=== PATIENT | male | born 1970 | race Caucasian/White ===

== ENCOUNTER 2018-10-22 01:44 | Emergency (ER) | payer OTHER ==
[~2018-10-22] VITALS: Ht 167.6 cm; Wt 79.4 kg
[2018-10-22 02:05] VITALS: BP_SYST 133
[2018-10-22 04:50] VITALS: BP_SYST 133
== END 2018-10-22 04:50 | disposition home or self-care (01) ==
LOC: SED 01:44
DX: S00.211A Abrasion of right eyelid and periocular area, initial encounter (principal); F10.129 Alcohol abuse with intoxication, unspecified; F43.10 Post-traumatic stress disorder, unspecified; W19.XXXA Unspecified fall, initial encounter; Y93.9 Activity, unspecified; Y92.89 Other specified places as the place of occurrence of the external cause; Y99.8 Other external cause status
CPT/HCPCS: 99283